=== PATIENT | female | born 1985 | race Asian ===

== ENCOUNTER 2019-03-18 16:49 | Emergency (ER) | payer OTHER ==
[2019-03-18] MEDS ORDERED: NORCO 5/325 PO STA (21:07)
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
[2019-03-19 00:07] VITALS: BP 118/87
== END 2019-03-19 00:07 | disposition home or self-care (01) ==
LOC: ED 16:49
DX: R07.89 Other chest pain (principal); M54.89 Other dorsalgia; M25.561 Pain in right knee; Z88.1 Allergy status to other antibiotic agents; V89.0XXA Person injured in unspecified motor-vehicle accident, nontraffic, initial encounter; Y93.89 Activity, other specified; Y92.410 Unspecified street and highway as the place of occurrence of the external cause; Y99.8 Other external cause status
CPT/HCPCS: 71046